=== PATIENT | female | born 1955 | race Caucasian/White ===

== ENCOUNTER → 2016-12-30 | Outpatient (CLI) | payer OTHER ==
[~2016-12-30] MED LIST: LIDOCAINE 1%, 20ML ONE; OMNIPAQUE 350 MG/ML, 100ML BOTTLE ONE
== END | disposition home or self-care (01) ==
LOC: RAD 13:23
PROVIDERS: ATTEND Otolaryngology
DX: R22.1 Localized swelling, mass and lump, neck (principal); J43.9 Emphysema, unspecified; J34.1 Cyst and mucocele of nose and nasal sinus; M62.58 Muscle wasting and atrophy, not elsewhere classified, other site; K08.9 Disorder of teeth and supporting structures, unspecified; E11.9 Type 2 diabetes mellitus without complications; T50 Poisoning by, adverse effect of and underdosing of diuretics and other and unspecified drugs, medicaments and biological substances
CPT/HCPCS: 36415; 70491; 76942; 82565; J3490; Q9967

== ENCOUNTER → 2017-12-17 | Outpatient (CLI) | payer OTHER | END | disposition home or self-care (01) | LOC: CFH 13:24 | PROVIDERS: ATTEND Family Medicine | DX: M43.16 Spondylolisthesis, lumbar region (principal); M51.26 Other intervertebral disc displacement, lumbar region; M51.37 Other intervertebral disc degeneration, lumbosacral region | CPT/HCPCS: 72148 ==

== ENCOUNTER → 2018-03-09 | Outpatient (CLI) | payer OTHER ==
[~2018-03-09] MED LIST changes: +ALPR1TAB6 PO; +AMIT25TA PO; +AMLO10TA6 PO; +DICY10CA3 PO; +GABA-827 PO; +HYDR-3245 PO; -LIDOCAINE 1%, 20ML ONE; -OMNIPAQUE 350 MG/ML, 100ML BOTTLE ONE; +ONDA4TAB13 SL; +PROM25TA10 PO
[2018-03-09 10:25] LABS: BASOPHILS # (AUTO) 0.01 x10^3/uL (0-0.1); BASOPHILS % (AUTO) 0 % (0-1); EOSINOPHILS # (AUTO) 0.17 x10^3/uL (0-0.4); EOSINOPHILS % (AUTO) 2 % (1-7); LYMPHOCYTES # (AUTO) 3.02 x10^3/uL (1-3.4); LYMPHOCYTES % (AUTO) 27 % (22-44); MD NO; MEAN CORPUSCULAR HEMOGLOBIN 30.7 pg (27.0-34.8); MEAN CORPUSCULAR HGB CONC 33.6 g/dL (32.4-35.8); MEAN CORPUSCULAR VOLUME 91.4 fL (80-100); MEAN PLATELET VOLUME 7.2 fL (7.4-10.4); MONOCYTES # (AUTO) 0.68 x10^3/uL (0.2-0.8); MONOCYTES % (AUTO) 6 % (2-9); NEUTROPHILS # (AUTO) 7.26 x10^3/uL (1.8-6.8); NEUTROPHILS % (AUTO) 65 % (42-75); PLATELET COUNT 453 x10^3/uL (130-400); RED CELL DISTRIBUTION WIDTH 13.7 % (9.6-15.2)
[2018-03-09 10:36] LABS: ANION GAP 8 mmol/L (5-15); CALCIUM 9.3 mg/dL (8.5-10.1); CHLORIDE 104 mmol/L (98-107); CREATININE 1.15 mg/dL (0.55-1.02); PROTHROMBIN TIME 10.3 Seconds (9.6-11.5)
[2018-03-09 11:34] LABS: MICROSCOPIC AUTO
[2018-03-09 11:37] LABS: CULTURE INDICATED? NO
== END | disposition home or self-care (01) ==
LOC: STAR 08:44
PROVIDERS: ATTEND Neurological Surgery
DX: Z01.818 Encounter for other preprocedural examination (principal); I51.7 Cardiomegaly; M51.36 Other intervertebral disc degeneration, lumbar region; M48.062 Spinal stenosis, lumbar region with neurogenic claudication; M43.16 Spondylolisthesis, lumbar region
CPT/HCPCS: 36415; 71046; 80048; 81001; 85025; 85610; 85730; 93005

== ENCOUNTER 2018-03-16 08:44 | Inpatient (IN) | payer OTHER ==
[~2018-03-16] VITALS: Ht 157.5 cm; Wt 86.6 kg
[~2018-03-16 08:44] MED LIST changes: +BACITRACIN 50,000 UNIT ONE; +BUPIVACAINE/PF 0.5% ONE; +EPINEPHRINE 1 MG/ML, 1ML ONE; +THROMBIN 5,000 UNIT VIAL TP ONE; +VANCOMYCIN 1,000 MG ONE
[2018-03-16] MEDS ORDERED: BUTA-177 PO (09:15)
[2018-03-16] MEDS ORDERED: ALBU8.5H8 INH (09:15)
[2018-03-16] MEDS ORDERED: OXYcodone IR 5MG TABLET PO ONE (10:00)
[2018-03-16] MEDS ORDERED: METOCLOPRAMIDE 10MG TABLET PO ONE (10:00)
[2018-03-16] MEDS ORDERED: GABAPENTIN 300 MG CAPSULE PO ONE (10:00)
[2018-03-16] MEDS ORDERED: ACETAMINOPHEN 500 MG TABLET PO ONE (10:00)
[2018-03-16] MEDS ORDERED: LACTATED RINGERS 1,000 ML IV SCH (10:35)
[2018-03-16] MEDS ORDERED: METOPROLOL 1 MG/ML, 5ML IV PRN (11:30)
[2018-03-16] MEDS ORDERED: hydrALAzine 20 MG/ML, 1ML IV PRN (11:30)
[2018-03-16] MEDS ORDERED: DIAZEPAM 5 MG/ML, 2ML IVPush PRN (11:30)
[2018-03-16] MEDS ORDERED: ALBUTEROL/IPRATROPIUM 2.5MG/0.5MG, 3 ML NPPB PRN (11:30)
[2018-03-16] MEDS ORDERED: PROCHLORPERAZINE 5 MG/ML, 2ML IV PRN (11:30)
[2018-03-16] MEDS ORDERED: DIPHENHYDRAMINE 50 MG/ML, 1ML IVPush PRN ×2 (11:30→14:30)
[2018-03-16] MEDS ORDERED: MORPHINE SULFATE 4 MG/ML, 1ML IVPush PRN (11:30)
[2018-03-16] MEDS ORDERED: LABETALOL 5MG/ML, 20ML IV PRN (11:30)
[2018-03-16] MEDS ORDERED: MIDAZOLAM 1 MG/ML, 2ML IV PRN (11:30)
[2018-03-16] MEDS ORDERED: SCOPOLAMINE PATCH, 1.5MG PATCH.TD72 TD PRN (11:30)
[2018-03-16] MEDS ORDERED: OXYcodone 5 MG/5 ML ORAL.SOL UDC PO PRN (11:30)
[2018-03-16] MEDS ORDERED: EPHEDRINE 50 MG/ML, 1ML IVPush PRN (11:30)
[2018-03-16] MEDS ORDERED: LORazepam 2 MG/ML, 1ML IVPush PRN (11:30)
[2018-03-16] MEDS ORDERED: MEPERIDINE/PF 25MG/0.5ML IVPush PRN (11:30)
[2018-03-16] MEDS ORDERED: LIDOCAINE-MPF 2% ,5ML ONE ×2 (12:13→12:56)
[2018-03-16] MEDS ORDERED: PHENYLEPHRINE 10 MG/ML ONE (12:13)
[2018-03-16] MEDS ORDERED: ROCURONIUM 10 MG/ML,10ML ONE (12:13)
[2018-03-16] MEDS ORDERED: CEFAZOLIN 1,000 MG ONE ×2 (12:55)
[2018-03-16] MEDS ORDERED: MIDAZOLAM 1 MG/ML, 2ML ONE (12:55)
[2018-03-16] MEDS ORDERED: FENTANYL PF 250 MCG/5ML ONE (12:55)
[2018-03-16] MEDS ORDERED: DEXAMETHASONE 4 MG/ML, 1ML ONE ×2 (12:55)
[2018-03-16] MEDS ORDERED: PROPOFOL 50 ML ONE ×2 (12:55→13:11)
[2018-03-16] MEDS ORDERED: PROPOFOL 10 MG/ML, 20ML ONE (12:55)
[2018-03-16] MEDS ORDERED: SUCCINYLCHOLINE 20 MG/ML, 10ML ONE (12:56)
[2018-03-16] MEDS ORDERED: HYDROmorphone 2 MG/ML, 1ML ONE (14:13)
[2018-03-16] MEDS ORDERED: FENTANYL PF 100 MCG/2ML ONE (14:13)
[2018-03-16] MEDS ORDERED: OXYcodone 5 MG/5 ML ORAL.SOL UDC ONE (14:13)
[2018-03-16] MEDS: HYDROmorphone 1 MG/ML, 1ML IV PRN ×4 (14:20→15:15)
[2018-03-16] MEDS ORDERED: SENNA/DOCUSATE TABLET PO PRN (14:30)
[2018-03-16] MEDS ORDERED: HYDROcodone/APAP 10/325 MG TABLET PO PRN (14:30)
[2018-03-16] MEDS ORDERED: HYDROcodone/APAP 5/325 TABLET PO PRN (14:30)
[2018-03-16] MEDS ORDERED: ONDANSETRON 2MG/ML, 2ML IVPush PRN (14:30)
[2018-03-16] MEDS ORDERED: PROMETHAZINE 25 MG/ML, 1ML IM PRN (14:30)
[2018-03-16] MEDS ORDERED: BISACODYL 10 MG SUPP PR PRN (14:30)
[2018-03-16] MEDS ORDERED: PHARMACY MAY ADJ FOR RENAL FX MC PRN (14:30)
[2018-03-16] MEDS ORDERED: METHOCARBAMOL 750 MG TABLET PO PRN (14:30)
[2018-03-16] MEDS: FENTANYL PF 100 MCG/2ML IV PRN ×3 (14:35→14:45)
[2018-03-16] MEDS ORDERED: ALBUTEROL SULFATE 2.5 MG/3 ML NPPB SCH (16:00)
[2018-03-16] MEDS ORDERED: ALBUTEROL SULFATE 2.5 MG/3 ML NPPB PRN (17:00)
[2018-03-16] MEDS ORDERED: PROMETHAZINE 25MG TABLET PO PRN (17:00)
[2018-03-16] MEDS: DICYCLOMINE 10 MG CAPSULE PO SCH (17:06)
[2018-03-16] MEDS: GABAPENTIN 400 MG CAPSULE PO SCH ×2 (17:06→21:11)
[2018-03-16] MEDS: NS + 20MEQ KCL 1,000 ML IV SCH (17:07)
[2018-03-16 17:30] VITALS: BP 172/95
[2018-03-16] MEDS: morphine SULFATE 10 MG/ML, 1ML IVPush PRN ×2 (17:38→21:25)
[2018-03-16 18:33] VITALS: BP 157/82
[2018-03-16] MEDS: ONDANSETRON ODT 4 MG PO PRN (20:07)
[2018-03-16] MEDS: SODIUM CHLORIDE FLUSH 10ML SYR IVF SCH (21:00)
[2018-03-16] MEDS: CEFAZOLIN PMX 1GM/50ML 50 ML IVPB SCH (21:11)
[2018-03-16] MEDS: AMITRIPTYLINE 25 MG TABLET PO SCH (21:11)
[2018-03-16] MEDS: ALPRazolam 1MG TABLET PO PRN (22:56)
[2018-03-16 23:54] VITALS: BP 151/88
[2018-03-17] MEDS: NS + 20MEQ KCL 1,000 ML IV SCH ×3 (03:07→22:30)
[2018-03-17 04:03] VITALS: BP 151/69
[2018-03-17] MEDS: OXYcodone/APAP 5/325MG TABLET PO PRN ×5 (04:26→22:37)
[2018-03-17] MEDS: CEFAZOLIN PMX 1GM/50ML 50 ML IVPB SCH (05:59)
[2018-03-17] MEDS: ENOXAPARIN 40 MG/0.4 ML SQ SCH (06:00)
[2018-03-17 06:03] LABS: BASOPHILS # (AUTO) 0.04 x10^3/uL (0-0.1); BASOPHILS % (AUTO) 0 % (0-1); EOSINOPHILS # (AUTO) 0.01 x10^3/uL (0-0.4); EOSINOPHILS % (AUTO) 0 % (1-7); LYMPHOCYTES # (AUTO) 3.18 x10^3/uL (1-3.4); LYMPHOCYTES % (AUTO) 21 % (22-44); MD NO; MEAN CORPUSCULAR HGB CONC 33.7 g/dL (32.4-35.8); MEAN CORPUSCULAR VOLUME 91.9 fL (80-100); MEAN PLATELET VOLUME 7.6 fL (7.4-10.4); MONOCYTES # (AUTO) 0.86 x10^3/uL (0.2-0.8); MONOCYTES % (AUTO) 6 % (2-9); NEUTROPHILS # (AUTO) 10.77 x10^3/uL (1.8-6.8); NEUTROPHILS % (AUTO) 73 % (42-75); PLATELET COUNT 362 x10^3/uL (130-400); RED BLOOD COUNT 3.57 x10^6/uL (3.82-5.3); RED CELL DISTRIBUTION WIDTH 13.6 % (9.6-15.2)
[2018-03-17 06:11] LABS: ANION GAP 10 mmol/L (5-15); CHLORIDE 109 mmol/L (98-107)
[2018-03-17 06:13] LABS: CREATININE 1.13 mg/dL (0.55-1.02)
[2018-03-17] MEDS: DICYCLOMINE 10 MG CAPSULE PO SCH ×3 (06:33→16:27)
[2018-03-17 07:51] VITALS: BP 165/82
[2018-03-17] MEDS: SODIUM CHLORIDE FLUSH 10ML SYR IVF SCH ×2 (09:00→21:00)
[2018-03-17] MEDS: AMLODIPINE 10 MG TAB PO SCH (09:22)
[2018-03-17] MEDS: AMITRIPTYLINE 25 MG TABLET PO SCH ×2 (09:22→21:22)
[2018-03-17] MEDS: GABAPENTIN 400 MG CAPSULE PO SCH ×3 (09:23→21:22)
[2018-03-17] MEDS: ALPRazolam 1MG TABLET PO PRN ×2 (09:24→21:22)
[2018-03-17 16:14] VITALS: BP 160/81
[2018-03-17] MEDS: BUTALB/APAP/CAFFEINE 50MG/325MG/40MG PO PRN (16:27)
[2018-03-17] MEDS: ONDANSETRON ODT 4 MG PO PRN (16:29)
[2018-03-17 19:19] VITALS: BP 172/91
[2018-03-17 19:44] VITALS: BP 180/99
[2018-03-17 22:40] VITALS: BP 118/81
[2018-03-18 01:00] VITALS: BP_SYST 10; BP_SYST 150; BP_DIAS 84
[2018-03-18 05:23] LABS: BASOPHILS # (AUTO) 0.06 x10^3/uL (0-0.1); BASOPHILS % (AUTO) 1 % (0-1); EOSINOPHILS # (AUTO) 0.21 x10^3/uL (0-0.4); EOSINOPHILS % (AUTO) 2 % (1-7); LYMPHOCYTES # (AUTO) 3.43 x10^3/uL (1-3.4); LYMPHOCYTES % (AUTO) 36 % (22-44); MD NO; MEAN CORPUSCULAR HEMOGLOBIN 30.8 pg (27.0-34.8); MEAN CORPUSCULAR HGB CONC 33.4 g/dL (32.4-35.8); MEAN CORPUSCULAR VOLUME 92.3 fL (80-100); MEAN PLATELET VOLUME 7.6 fL (7.4-10.4); MONOCYTES # (AUTO) 0.69 x10^3/uL (0.2-0.8); MONOCYTES % (AUTO) 7 % (2-9); NEUTROPHILS # (AUTO) 5.27 x10^3/uL (1.8-6.8); NEUTROPHILS % (AUTO) 55 % (42-75); PLATELET COUNT 316 x10^3/uL (130-400); RED BLOOD COUNT 3.35 x10^6/uL (3.82-5.3); RED CELL DISTRIBUTION WIDTH 13.4 % (9.6-15.2)
[2018-03-18] MEDS: OXYcodone/APAP 5/325MG TABLET PO PRN ×5 (05:26→22:08)
[2018-03-18] MEDS: ENOXAPARIN 40 MG/0.4 ML SQ SCH (05:26)
[2018-03-18 05:35] LABS: CHLORIDE 109 mmol/L (98-107)
[2018-03-18 05:41] LABS: ANION GAP 8 mmol/L (5-15); CALCIUM 8.4 mg/dL (8.5-10.1); CREATININE 1.12 mg/dL (0.55-1.02)
[2018-03-18] MEDS: DICYCLOMINE 10 MG CAPSULE PO SCH ×3 (06:44→15:44)
[2018-03-18 07:12] VITALS: BP 153/91
[2018-03-18] MEDS: NS + 20MEQ KCL 1,000 ML IV SCH (08:30)
[2018-03-18] MEDS: SODIUM CHLORIDE FLUSH 10ML SYR IVF SCH ×2 (09:18→21:00)
[2018-03-18] MEDS: ALPRazolam 1MG TABLET PO PRN ×2 (09:19→22:08)
[2018-03-18] MEDS: AMITRIPTYLINE 25 MG TABLET PO SCH ×2 (09:19→22:08)
[2018-03-18] MEDS: GABAPENTIN 400 MG CAPSULE PO SCH ×3 (09:19→22:08)
[2018-03-18] MEDS: AMLODIPINE 10 MG TAB PO SCH (10:50)
[2018-03-18 15:36] VITALS: BP 129/74
[2018-03-18] MEDS: ONDANSETRON ODT 4 MG PO PRN (15:44)
[2018-03-18 18:48] VITALS: BP 146/78
[2018-03-19] MEDS: NS + 20MEQ KCL 1,000 ML IV SCH ×2 (00:32→18:43)
[2018-03-19 01:43] VITALS: BP 160/92
[2018-03-19] MEDS: DICYCLOMINE 10 MG CAPSULE PO SCH ×3 (05:15→15:56)
[2018-03-19] MEDS: morphine SULFATE 10 MG/ML, 1ML IVPush PRN ×2 (05:22→17:52)
[2018-03-19 06:24] LABS: BASOPHILS # (AUTO) 0.05 x10^3/uL (0-0.1); BASOPHILS % (AUTO) 1 % (0-1); EOSINOPHILS # (AUTO) 0.24 x10^3/uL (0-0.4); EOSINOPHILS % (AUTO) 3 % (1-7); LYMPHOCYTES # (AUTO) 2.83 x10^3/uL (1-3.4); LYMPHOCYTES % (AUTO) 32 % (22-44); MD NO; MEAN CORPUSCULAR HEMOGLOBIN 31.4 pg (27.0-34.8); MEAN CORPUSCULAR HGB CONC 33.8 g/dL (32.4-35.8); MEAN CORPUSCULAR VOLUME 92.7 fL (80-100); MEAN PLATELET VOLUME 7.4 fL (7.4-10.4); MONOCYTES # (AUTO) 0.69 x10^3/uL (0.2-0.8); MONOCYTES % (AUTO) 8 % (2-9); NEUTROPHILS # (AUTO) 4.95 x10^3/uL (1.8-6.8); NEUTROPHILS % (AUTO) 57 % (42-75); PLATELET COUNT 350 x10^3/uL (130-400); RED BLOOD COUNT 3.61 x10^6/uL (3.82-5.3); RED CELL DISTRIBUTION WIDTH 13.4 % (9.6-15.2)
[2018-03-19] MEDS ORDERED: BACITRACIN 50,000 UNIT ONE (07:06)
[2018-03-19] MEDS ORDERED: EPINEPHRINE 1 MG/ML, 1ML ONE (07:06)
[2018-03-19] MEDS ORDERED: BUPIVACAINE/PF 0.5% ONE (07:06)
[2018-03-19] MEDS ORDERED: VANCOMYCIN 1,000 MG ONE (07:06)
[2018-03-19] MEDS ORDERED: FENTANYL PF 250 MCG/5ML ONE (07:13)
[2018-03-19] MEDS ORDERED: MIDAZOLAM 1 MG/ML, 2ML ONE (07:13)
[2018-03-19] MEDS ORDERED: PROPOFOL 50 ML ONE ×2 (07:14→08:48)
[2018-03-19] MEDS ORDERED: KETAMINE 50 MG/ML, 10ML ONE (07:23)
[2018-03-19] MEDS ORDERED: DEXAMETHASONE 4 MG/ML, 1ML ONE (07:31)
[2018-03-19] MEDS ORDERED: PHENYLEPHRINE 10 MG/ML ONE (07:31)
[2018-03-19] MEDS ORDERED: SUCCINYLCHOLINE 20 MG/ML, 10ML ONE (07:31)
[2018-03-19] MEDS ORDERED: BUPIVACAINE/PF-EPI 0.25% 1:200K INFIL ONE (08:05)
[2018-03-19] MEDS: AMITRIPTYLINE 25 MG TABLET PO SCH ×2 (09:00→21:13)
[2018-03-19] MEDS: AMLODIPINE 10 MG TAB PO SCH ×2 (09:00→11:19)
[2018-03-19] MEDS: SODIUM CHLORIDE FLUSH 10ML SYR IVF SCH ×2 (09:00→21:00)
[2018-03-19] MEDS: GABAPENTIN 400 MG CAPSULE PO SCH ×3 (09:00→21:14)
[2018-03-19] MEDS ORDERED: FENTANYL PF 100 MCG/2ML ONE ×2 (09:09→09:18)
[2018-03-19] MEDS ORDERED: HYDROmorphone 2 MG/ML, 1ML ONE (09:18)
[2018-03-19] MEDS ORDERED: OXYcodone 5 MG/5 ML ORAL.SOL UDC ONE (09:18)
[2018-03-19] MEDS ORDERED: DIAZEPAM 5 MG/ML, 2ML IVPush PRN (09:30)
[2018-03-19] MEDS ORDERED: EPHEDRINE 50 MG/ML, 1ML IVPush PRN (09:30)
[2018-03-19] MEDS ORDERED: PROMETHAZINE 12.5 MG SUPP PR PRN (09:30)
[2018-03-19] MEDS ORDERED: ONDANSETRON 2MG/ML, 2ML IV PRN ×2 (09:30→13:30)
[2018-03-19] MEDS ORDERED: DIPHENHYDRAMINE 50 MG/ML, 1ML IVPush PRN (09:30)
[2018-03-19] MEDS ORDERED: hydrALAzine 20 MG/ML, 1ML IV PRN (09:30)
[2018-03-19] MEDS ORDERED: OXYcodone 5 MG/5 ML ORAL.SOL UDC PO PRN (09:30)
[2018-03-19] MEDS ORDERED: METOPROLOL 1 MG/ML, 5ML IV PRN (09:30)
[2018-03-19] MEDS ORDERED: PROMETHAZINE 25 MG SUPP PR PRN (09:30)
[2018-03-19] MEDS ORDERED: ALBUTEROL/IPRATROPIUM 2.5MG/0.5MG, 3 ML NPPB PRN (09:30)
[2018-03-19] MEDS ORDERED: EPHEDRINE 50 MG/ML, 1ML IM PRN (09:30)
[2018-03-19] MEDS ORDERED: PROMETHAZINE 25 MG/ML, 1ML IV PRN (09:30)
[2018-03-19] MEDS ORDERED: MIDAZOLAM 1 MG/ML, 2ML IV PRN (09:30)
[2018-03-19] MEDS ORDERED: MEPERIDINE/PF 25MG/0.5ML IVPush PRN (09:30)
[2018-03-19] MEDS: FENTANYL PF 100 MCG/2ML IV PRN ×2 (09:48→09:58)
[2018-03-19] MEDS: HYDROmorphone 1 MG/ML, 1ML IV PRN ×2 (10:06→10:15)
[2018-03-19] MEDS ORDERED: LABETALOL 5MG/ML, 20ML ONE (10:11)
[2018-03-19 12:07] VITALS: BP 182/98
[2018-03-19] MEDS ORDERED: LABETALOL 5MG/ML, 20ML IV PRN (13:30)
[2018-03-19] MEDS ORDERED: DIPHENHYDRAMINE 50 MG CAPSULE PO PRN (13:30)
[2018-03-19] MEDS ORDERED: MAGNESIUM HYDROXIDE 8%, 30ML UDC PO PRN (13:30)
[2018-03-19] MEDS ORDERED: HYDROcodone/APAP 10/325 MG TABLET PO PRN (13:30)
[2018-03-19] MEDS: OXYcodone/APAP 10/325MG TABLET PO PRN ×2 (14:30→21:14)
[2018-03-19 15:36] VITALS: BP 140/80
[2018-03-19] MEDS: CEFAZOLIN PMX 1GM/50ML 50 ML IVPB SCH ×2 (15:56→23:40)
[2018-03-19] MEDS ORDERED: MORPHINE SULFATE 4 MG/ML, 1ML ONE (17:48)
[2018-03-19] MEDS: ONDANSETRON ODT 4 MG PO PRN (17:52)
[2018-03-19 19:43] VITALS: BP 164/93
[2018-03-19] MEDS ORDERED: ZOLPIDEM 5MG TABLET PO PRN (21:00)
[2018-03-19] MEDS: ALPRazolam 1MG TABLET PO PRN (21:14)
[2018-03-20 03:41] VITALS: BP 150/79
[2018-03-20] MEDS: OXYcodone/APAP 10/325MG TABLET PO PRN ×3 (05:02→13:19)
[2018-03-20 05:37] LABS: ANION GAP 6 mmol/L (5-15); CALCIUM 8.4 mg/dL (8.5-10.1); CHLORIDE 107 mmol/L (98-107)
[2018-03-20 05:38] LABS: CREATININE 1.12 mg/dL (0.55-1.02)
[2018-03-20 05:39] LABS: BASOPHILS # (AUTO) 0.05 x10^3/uL (0-0.1); BASOPHILS % (AUTO) 0 % (0-1); EOSINOPHILS # (AUTO) 0.19 x10^3/uL (0-0.4); EOSINOPHILS % (AUTO) 2 % (1-7); LYMPHOCYTES # (AUTO) 3.63 x10^3/uL (1-3.4); LYMPHOCYTES % (AUTO) 28 % (22-44); MD NO; MEAN CORPUSCULAR HEMOGLOBIN 31.2 pg (27.0-34.8); MEAN CORPUSCULAR HGB CONC 34.1 g/dL (32.4-35.8); MEAN CORPUSCULAR VOLUME 91.3 fL (80-100); MEAN PLATELET VOLUME 7.6 fL (7.4-10.4); MONOCYTES # (AUTO) 1.02 x10^3/uL (0.2-0.8); MONOCYTES % (AUTO) 8 % (2-9); NEUTROPHILS # (AUTO) 7.89 x10^3/uL (1.8-6.8); NEUTROPHILS % (AUTO) 62 % (42-75); PLATELET COUNT 356 x10^3/uL (130-400); RED BLOOD COUNT 3.23 x10^6/uL (3.82-5.3); RED CELL DISTRIBUTION WIDTH 13.3 % (9.6-15.2)
[2018-03-20] MEDS: DICYCLOMINE 10 MG CAPSULE PO SCH ×2 (07:00→11:06)
[2018-03-20 07:22] VITALS: BP 156/86
[2018-03-20] MEDS: NS + 20MEQ KCL 1,000 ML IV SCH (08:02)
[2018-03-20] MEDS: GABAPENTIN 400 MG CAPSULE PO SCH (08:15)
[2018-03-20] MEDS: CEFAZOLIN PMX 1GM/50ML 50 ML IVPB SCH (08:15)
[2018-03-20] MEDS: AMITRIPTYLINE 25 MG TABLET PO SCH (08:16)
[2018-03-20] MEDS: BUTALB/APAP/CAFFEINE 50MG/325MG/40MG PO PRN (08:23)
[2018-03-20] MEDS: ONDANSETRON ODT 4 MG PO PRN (08:24)
[2018-03-20] MEDS ORDERED: SENNA/DOCUSATE TABLET PO SCH (09:00)
[2018-03-20] MEDS ORDERED: OXYC-307 PO (09:38)
[2018-03-20] MEDS ORDERED: METH750T87 PO (09:40)
[2018-03-20] MEDS: SODIUM CHLORIDE FLUSH 10ML SYR IVF SCH (09:56)
[2018-03-20] MEDS: MAGNESIUM CITRATE 300ML ORAL SOL PO PRN ×2 (10:55→12:05)
[2018-03-20 13:24] VITALS: BP 172/82
[2018-03-20 14:20] VITALS: BP 148/86
== END 2018-03-20 14:50 | disposition home or self-care (01) | DRG 455 ==
LOC: ORIP 08:44 → 4NOR 16:07
PROVIDERS: ADMIT Neurological Surgery; ATTEND Neurological Surgery
PROC: 0SB20ZZ Excision of Lumbar Vertebral Disc, Open Approach (ICD-10-PCS; 2018-03-16)
PROC: 4A11X4G Monitoring of Peripheral Nervous Electrical Activity, Intraoperative, External Approach (ICD-10-PCS; 2018-03-16)
PROC: 0SG00A0 Fusion of Lumbar Vertebral Joint with Interbody Fusion Device, Anterior Approach, Anterior Column, Open Approach (ICD-10-PCS; principal; 2018-03-16 12:00)
PROC: 0SG0071 Fusion of Lumbar Vertebral Joint with Autologous Tissue Substitute, Posterior Approach, Posterior Column, Open Approach (ICD-10-PCS; 2018-03-19)
PROC: 4A11X4G Monitoring of Peripheral Nervous Electrical Activity, Intraoperative, External Approach (ICD-10-PCS; 2018-03-19)
DX: M48.062 Spinal stenosis, lumbar region with neurogenic claudication (principal); M43.16 Spondylolisthesis, lumbar region; M51.16 Intervertebral disc disorders with radiculopathy, lumbar region; I25.10 Atherosclerotic heart disease of native coronary artery without angina pectoris; I10 Essential (primary) hypertension; I25.2 Old myocardial infarction; J44.9 Chronic obstructive pulmonary disease, unspecified; Z99.81 Dependence on supplemental oxygen; Z88.2 Allergy status to sulfonamides; Z88.8 Allergy status to other drugs, medicaments and biological substances; F41.9 Anxiety disorder, unspecified; Z85.9 Personal history of malignant neoplasm, unspecified; Z86.73 Personal history of transient ischemic attack (TIA), and cerebral infarction without residual deficits; Z90.710 Acquired absence of both cervix and uterus; Z82.49 Family history of ischemic heart disease and other diseases of the circulatory system; Z80.3 Family history of malignant neoplasm of breast; Z80.8 Family history of malignant neoplasm of other organs or systems; Z88.6 Allergy status to analgesic agent; Z88.1 Allergy status to other antibiotic agents; Z79.899 Other long term (current) drug therapy
CPT/HCPCS: 36415; 72100; 72131; 80048; 85025; C1713; C1729; C1767; C1776; G0378; J0171; J0690; J1100; J1170; J1650; J2250; J2704; J3010; J3360; J3370; J3480; J3490; Q0162; C1762; J0330; J2270; J2370; J7120

== ENCOUNTER → 2018-05-06 | Outpatient (CLI) | payer OTHER ==
[~2018-05-06] MED LIST changes: +ALBU8.5H8 INH; -BACITRACIN 50,000 UNIT ONE; -BUPIVACAINE/PF 0.5% ONE; +BUTA-177 PO; -EPINEPHRINE 1 MG/ML, 1ML ONE; +METH750T87 PO; +OXYC-307 PO; -THROMBIN 5,000 UNIT VIAL TP ONE; -VANCOMYCIN 1,000 MG ONE
== END | disposition home or self-care (01) ==
LOC: RAD 13:43
PROVIDERS: ATTEND Physician Assistant
DX: M48.061 Spinal stenosis, lumbar region without neurogenic claudication (principal); M54.16 Radiculopathy, lumbar region
CPT/HCPCS: 72131; 72148

== ENCOUNTER 2018-06-29 05:25 | Inpatient (IN) | payer OTHER ==
[2018-06-16 11:11] VITALS: BP 165/99
[~2018-06-29] VITALS: Ht 154.9 cm; Wt 72.3 kg
[~2018-06-29 05:25] MED LIST changes: -AMLO10TA6 PO; +AMLO10TA8 PO; +CYCL-259 PO; +HYDR-3307 PO
[2018-06-29] MEDS ORDERED: LACTATED RINGERS 1,000 ML IV SCH (06:09)
[2018-06-29 06:11] VITALS: BP 165/99
[2018-06-29] MEDS ORDERED: THROMBIN 5,000 UNIT VIAL TP ONE (06:20)
[2018-06-29] MEDS ORDERED: VANCOMYCIN 1,000 MG ONE (06:20)
[2018-06-29] MEDS ORDERED: BUPIVACAINE/PF-EPI 0.5% 1:200K ONE (06:20)
[2018-06-29] MEDS ORDERED: BACITRACIN 50,000 UNIT ONE (06:20)
[2018-06-29] MEDS ORDERED: FENTANYL PF 250 MCG/5ML ONE (06:25)
[2018-06-29] MEDS ORDERED: GLYCOPYRROLATE 0.2MG/1ML, 5ML ONE (06:26)
[2018-06-29] MEDS ORDERED: ROCURONIUM 10MG/ML,5ML ONE (06:26)
[2018-06-29] MEDS ORDERED: PROPOFOL 10 MG/ML, 20ML ONE (06:26)
[2018-06-29] MEDS ORDERED: CEFAZOLIN 1,000 MG ONE (06:26)
[2018-06-29] MEDS ORDERED: DEXAMETHASONE 4 MG/ML, 1ML ONE (06:26)
[2018-06-29] MEDS ORDERED: ONDANSETRON 2MG/ML, 2ML ONE (06:26)
[2018-06-29] MEDS ORDERED: NEOSTIGMINE 1 MG/ML, 10ML ONE (06:26)
[2018-06-29] MEDS ORDERED: ACETAMINOPHEN 500 MG TABLET PO ONE (06:30)
[2018-06-29] MEDS ORDERED: GABAPENTIN 300 MG CAPSULE PO ONE (06:30)
[2018-06-29] MEDS ORDERED: MIDAZOLAM 1 MG/ML, 2ML ONE (06:34)
[2018-06-29] MEDS ORDERED: ONDANSETRON ODT 8 MG PO PRN (07:00)
[2018-06-29] MEDS ORDERED: hydrALAzine 20 MG/ML, 1ML IV PRN (07:00)
[2018-06-29] MEDS ORDERED: MORPHINE SULFATE 4 MG/ML, 1ML IVPush PRN ×2 (07:00→08:30)
[2018-06-29] MEDS ORDERED: FENTANYL PF 100 MCG/2ML IV PRN (07:00)
[2018-06-29] MEDS ORDERED: PHENYLEPHRINE 10 MG/ML ONE (07:00)
[2018-06-29] MEDS ORDERED: PROMETHAZINE 25 MG SUPP PR PRN (07:00)
[2018-06-29] MEDS ORDERED: LABETALOL 5MG/ML, 20ML IV PRN (07:00)
[2018-06-29] MEDS ORDERED: ONDANSETRON 2MG/ML, 2ML IV PRN (07:00)
[2018-06-29] MEDS ORDERED: PROMETHAZINE 25 MG/ML, 1ML IV PRN (07:00)
[2018-06-29] MEDS ORDERED: PROMETHAZINE 12.5 MG SUPP PR PRN (07:00)
[2018-06-29] MEDS ORDERED: PROMETHAZINE 25 MG/ML, 1ML IM PRN ×2 (07:00)
[2018-06-29] MEDS ORDERED: MEPERIDINE/PF 25MG/0.5ML IVPush PRN (07:00)
[2018-06-29] MEDS ORDERED: D5%-0.9% NACL+KCL 20MEQ 1,000 ML IV SCH (08:30)
[2018-06-29] MEDS ORDERED: HYDROcodone/APAP 10/325 MG TABLET PO PRN (08:30)
[2018-06-29] MEDS ORDERED: TEMPLATE NON-FORMULARY MED. (Alprazolam** 1 MG) PO PRN (08:30)
[2018-06-29] MEDS ORDERED: ACETAMINOPHEN PO PRN (08:30)
[2018-06-29] MEDS ORDERED: [UNRECOGNIZED DRUG - OTHER] PO PRN (08:30)
[2018-06-29] MEDS ORDERED: TEMPLATE NON-FORMULARY MED. (Ondansetron** (Ondansetron Odt**) 4 MG) SL PRN (08:30)
[2018-06-29] MEDS ORDERED: BUTALB PO PRN (08:30)
[2018-06-29] MEDS ORDERED: DIPHENHYDRAMINE 50 MG/ML, 1ML IVPush PRN (08:30)
[2018-06-29] MEDS ORDERED: CAFFEINE PO PRN (08:30)
[2018-06-29] MEDS ORDERED: PROMETHAZINE HCL 25 MG PO PRN (08:30)
[2018-06-29] MEDS ORDERED: OXYcodone/APAP 5/325MG TABLET PO PRN (08:30)
[2018-06-29] MEDS ORDERED: PHARMACY MAY ADJ FOR RENAL FX MC PRN (08:30)
[2018-06-29] MEDS ORDERED: CEFAZOLIN PMX 1GM/50ML 50 ML IVPB SCH (08:30)
[2018-06-29] MEDS ORDERED: HYDROmorphone 2 MG/ML, 1ML ONE (08:33)
[2018-06-29] MEDS ORDERED: OXYcodone 5 MG/5 ML ORAL.SOL UDC ONE (08:33)
[2018-06-29] MEDS: OXYcodone 5 MG/5 ML ORAL.SOL UDC PO PRN ×2 (08:35→12:13)
[2018-06-29] MEDS: HYDROmorphone 2 MG/ML, 1ML IVPush PRN ×2 (08:38→08:45)
[2018-06-29] MEDS ORDERED: SODIUM CHLORIDE FLUSH 10ML SYR IVF SCH (09:00)
[2018-06-29] MEDS ORDERED: AMLODIPINE 10 MG TAB PO SCH (09:00)
[2018-06-29] MEDS ORDERED: AMITRIPTYLINE HCL 25 MG PO SCH (09:00)
[2018-06-29] MEDS ORDERED: CYCLOBENZAPRINE HCL 10 MG PO SCH (09:00)
[2018-06-29] MEDS ORDERED: GABAPENTIN 400 MG PO SCH (09:00)
[2018-06-29] MEDS ORDERED: TEMPLATE NON-FORMULARY MED. (Albuterol Sulfate (Proair Hfa) 2 PUFF(S)) INH SCH (11:00)
[2018-06-29] MEDS ORDERED: DICYCLOMINE 10 MG CAPSULE PO SCH (11:00)
== END 2018-06-29 12:35 | disposition home or self-care (01) | DRG 517 ==
LOC: ORIP 05:25 → INTOOBSV 05:25 → OBSVTOIN 05:55
PROVIDERS: ADMIT Neurological Surgery; ATTEND Neurological Surgery
PROC: 01NB0ZZ Release Lumbar Nerve, Open Approach (ICD-10-PCS; principal; 2018-06-29 07:00)
DX: M48.061 Spinal stenosis, lumbar region without neurogenic claudication (principal); M51.16 Intervertebral disc disorders with radiculopathy, lumbar region; Z98.1 Arthrodesis status; J44.9 Chronic obstructive pulmonary disease, unspecified; I10 Essential (primary) hypertension; G89.29 Other chronic pain; I16.0 Hypertensive urgency
CPT/HCPCS: 72100; C1729; J0690; J1100; J1170; J2250; J2405; J2704; J2710; J3010; J3370; J3490; G0378; J2370; J7120